=== PATIENT | male | born 1970 | race Caucasian/White ===

== ENCOUNTER → 2021-12-02 | Outpatient (CLI) | payer BC ==
[2021-12-02 12:55] LABS: HEMOGLOBIN 14.7 gm/dl (14.0-17.5); RED BLOOD COUNT 4.47 M/UL (4.20-5.50); WHITE BLOOD COUNT 6.8 K/UL (4.5-11.0)
[2021-12-03 07:10] LABS: ESTIM. AVG GLU (EAG) 111 mg/dL (.); HEMOGLOBIN A1C 5.5 % (4.8-5.6)
[2021-12-03 08:14] LABS: A/G RATIO 2.2 (1.2-2.2); ALKALINE PHOSPHATASE, S 73 IU/L (44-121); ALT (SGPT) 37 IU/L (0-44); AST (SGOT) 30 IU/L (0-40); BILIRUBIN, TOTAL 0.2 mg/dL (0.0-1.2); BUN 18 mg/dL (6-24); BUN/CREATININE RATIO 18 (9-20); CALCIUM, SERUM 9.5 mg/dL (8.7-10.2); CARBON DIOXIDE, TOTAL 19 mmol/L (20-29); CHLORIDE, SERUM 105 mmol/L (96-106); CHOLESTEROL, TOTAL 181 mg/dL (100-199); CREATININE, SERUM 1.01 mg/dL (0.76-1.27); EGFR IF AFRICN AM 99 (>59); EGFR IF NONAFRICN AM 86 (>59); GLOBULIN, TOTAL 2.1 g/dL (1.5-4.5); GLUCOSE, SERUM 94 mg/dL (65-99); HDL CHOLESTEROL 64 mg/dL (>39); LDL CHOLESTEROL CALC 91 mg/dL (0-99); LDL/HDL RATIO 1.4 ratio (0.0-3.6); POTASSIUM, SERUM 4.4 mmol/L (3.5-5.2); PROTEIN, TOTAL, SERUM 6.8 g/dL (6.0-8.5); SODIUM, SERUM 141 mmol/L (134-144); T. CHOL/HDL RATIO 2.8 ratio (0.0-5.0); TRIGLYCERIDES 154 mg/dL (0-149)
== END ==
LOC: LAB 10:49
PROVIDERS: Family Medicine Adolescent Medicine
DX: I10 Essential (primary) hypertension (principal); E78.5 Hyperlipidemia, unspecified; R73.9 Hyperglycemia, unspecified
CPT/HCPCS: 36415; 80053; 80061; 82043; 83036; 84443; 85025

== ENCOUNTER → 2022-06-01 | Outpatient (CLI) | payer BC ==
[2022-06-01 10:43] LABS: HEMOGLOBIN 13.1 gm/dl (14.0-17.5); RED BLOOD COUNT 4.1 M/UL (4.20-5.50); WHITE BLOOD COUNT 5.7 K/UL (4.5-11.0)
[2022-06-01 11:12] LABS: BUN/CREATININE RATIO 19 (0-10)
== END ==
LOC: LAB 10:09
PROVIDERS: Family Medicine Adolescent Medicine
DX: I10 Essential (primary) hypertension (principal); E78.5 Hyperlipidemia, unspecified; R73.9 Hyperglycemia, unspecified
CPT/HCPCS: 36415; 80053; 80061; 82043; 83036; 84443; 85025